=== PATIENT | female | born 1930 | race American Indian/Alaskan Native ===

== ENCOUNTER 2017-05-20 10:56 | Emergency (ER) | payer MEDICARE ==
[2017-05-20 11:01] VITALS: BMI 23.2
[2017-05-20 11:06] VITALS: TEMP 98.8; O2SAT 99
--- NOTE | 2017-05-20 11:35 | ED PDOC ---
Arrival/HPI <Chauncey Navarro - Last Filed: 05/20/17 12:57> - General Historian: Family - History of Present Illness Time/Duration: Other (may 08 - fall) Symptom Onset: Gradual Quality: Other (no pain) <Alivia Wilkes - Last Filed: 05/20/17 13:16> - General Chief Complaint: Trauma Time Seen by Provider: 05/20/17 11:10 - History of Present Illness Narrative History of Present Illness (Text): 05/20/17 12:08 86yr old diabetic female presents today brought in by family member for concerns for poorly healing wounds to the right .per patients daughter, the patient fell 2 weeks ago and scraped right foot and knee. she states she has been applying neosporin to the affected areas without appropriate healing. no fever/chills. pt denies pain. no vomiting. eating and drinking well. denies decreased sensation. no medications taken for pain at home. no other complaints. (Alivia Wilkes) Past Medical History - Provider Review Nursing Documentation Reviewed: Yes - Travel History Have you recently traveled outside [place] w/in the past 3 mons?: No - Infectious Disease Hx of Infectious Diseases: None - Reproductive Menopause: Yes - Cardiac Hx Hypertension: Yes - Neurological Hx Dementia: Yes - Endocrine/Metabolic Hx Diabetes Mellitus Type 2: Yes - Musculoskeletal/Rheumatological Hx Falls: No - Psychiatric Hx Psychophysiologic Disorder: No Hx Anxiety: No Hx Bipolar Disorder: No Hx Depression: No Hx Emotional Abuse: No Hx Hallucinations: No Hx Panic Disorder: No Hx Post Traumatic Stress Disorder: No Hx Psychosis: No Hx Physical Abuse: No Hx Schizophrenia: No Hx Sexual Abuse: No Hx Substance Use: No - Surgical History Hx Orthopedic Surgery: No (eddie) Other/Comment: 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, 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 - Anesthesia Hx Anesthesia: Yes Hx Anesthesia Reactions: No Hx Malignant Hyperthermia: No - Suicidal Assessment Feels Threatened In Home Enviroment: No <Alivia Wilkes - Last Filed: 05/20/17 13:16> Family/Social History - Physician Review Nursing Documentation Reviewed: Yes Family/Social History: Unknown Family HX Smoking Status: Former Smoker Hx Alcohol Use: No Hx Substance Use: No Hx Substance Use Treatment: No <Alivia Wilkes - Last Filed: 05/20/17 13:16> Allergies/Home Meds <Chauncey Navarro - Last Filed: 05/20/17 12:57> <Alivia Wilkes T - Last Filed: 05/20/17 13:16> Allergies/Adverse Reactions: Allergies Penicillins Allergy (Verified 07/20/15 08:23) REDNESS Home Medications: Home Meds Medication Instructions Recorded Confirmed Insulin Glargine, Recombina 10 units SC DAILY PRN 05/20/17 05/20/17 [Lantus] Review of Systems - Review of Systems Constitutional: absent: Fatigue, Fevers Respiratory: absent: SOB, Cough Cardiovascular: absent: Chest Pain, Palpitations Gastrointestinal: absent: Abdominal Pain, Nausea, Vomiting Musculoskeletal: absent: Arthralgias Skin: Other (abrasions) <Alivia Wilkes - Last Filed: 05/20/17 13:16> Physical Exam Vital Signs Reviewed: Yes Temperature: Afebrile Blood Pressure: Normal Pulse: Regular Respiratory Rate: Normal Appearance: Positive for: Well-Appearing, Non-Toxic, Comfortable Pain Distress: None Mental Status: Positive for: Alert and Oriented X 3 - Systems Exam Mouth: Present: Moist Mucous Membranes Neck: Present: Normal Range of Motion Respiratory/Chest: Present: Clear to Auscultation, Good Air Exchange. No: Respiratory Distress, Accessory Muscle Use Cardiovascular: Present: Regular Rate and Rhythm, Normal S1, S2. No: Murmurs Abdomen: No: Tenderness, Distention, Rebound, Guarding Upper Extremity: Present: Normal ROM Lower Extremity: Present: Normal ROM, Swelling (right foot; superficial abrasion noted dorsal aspect of great toe and dorsal aspect of foot; both abrasions approx dime sized. minimal swelling, no erythema; no warmth. no purulent discharge. ), Neurovascularly Intact, Capillary Refill < 2 s, Other ( right knee; + superficial abrasion noted over anterior knee; full rom of knee. no erythema; no edema. ). No: CALF TENDERNESS, Tenderness, Erythema, Deformity Skin: Present: Warm, Dry Psychiatric: Present: Alert <Alivia Wilkes - Last Filed: 05/20/17 13:16> Vital Signs Temp Pulse Resp BP Pulse Ox 05/20/17 10:57 98.8 F 73 16 125/75 99 Medical Decision Making <Chauncey Navarro - Last Filed: 05/20/17 12:57> <Alivia Wilkes - Last Filed: 05/20/17 13:16> ED Course and Treatment: 05/20/17 12:18 86yr old diabetic female with abrasions to foot and knee s/p fall 2 weeks ago. cbc: wnl cmp WNl xray right foot; no fracture. as read by radiologist pt reassessment; pt non toxic well appearing; no distress. stable vitals. pt seen and evaluated by dr. navarro. will d/c home with bactrim. advised f/u with PMD within the next 2 days. advised f/u with wound center/surgery. advised immediate return if symptoms worsen,persist or if new symptoms develop. Patient/patients daughter verbalizes understanding of discharge instructions and need for immediate followup. all aspects of this case were discussed the attending of record. impression; abrasion, foot, abrasion knee apply bacitracin/neosporin twice daily to affected areas. bactrim; 1 tablet twice daily x 7 days follow up with the primary care physician within the next 2 days. follow up with the wound center/surgeon within the next 2 days. return immediately if symptoms worsen,persist or if new symptoms develop; high fevers, increasing pain, redness, increasing swelling, purulent discharge or any other concerning symptoms develop (Alivia Wilkes) - Lab Interpretations Lab Results: 05/20/17 11:46 05/20/17 11:46 Lab Results 05/20/17 11:46: WBC 7.8 D, RBC 3.47 L, Hgb 10.6 L, Hct 32.1 L, MCV 92.5, MCH 30.5, MCHC 33.0, RDW 13.3, Plt Count 321, MPV 9.1, Gran % 71.0 H, Lymph % (Auto ) 22.6, Angelina % (Auto) 5.0, Eos % (Auto) 1.1 L, Baso % (Auto) 0.3, Gran # 5.57, Lymph # 1.8, Angelina # 0.4, Eos # 0.1, Baso # 0.02 05/20/17 11:46: Sodium 141, Potassium 3.8, Chloride 103, Carbon Dioxide 31, Anion Gap 11, BUN 20, Creatinine 1.0, Est GFR ( Amer) > 60, Est GFR (Non- Af Amer) 52, Random Glucose 113 H, Calcium 9.4, Total Bilirubin 0.9, AST 25, ALT 28, Alkaline Phosphatase 109, Total Protein 7.1, Albumin 3.5, Globulin 3.6, Albumin/Globulin Ratio 1.0 L - RAD Interpretation Radiology Orders: 05/20/17 11:15 FOOT RIGHT 3 VIEWS ROUTINE [RAD] Stat - Medication Orders Current Medication Orders: Discontinued Medications Tetanus/Reduced Diphtheria/Acell Pertussis (Boostrix Vaccine Inj) 0.5 ml IM .ONCE ONE Stop: 05/20/17 12:15 - PA / PRESCRIPTION BENEFIT SPECIALIST / Resident Statement / has examined the patient and agrees with the treatment plan. <Chauncey Navarro - Last Filed: 05/20/17 12:57> Disposition/Present on Arrival <Chauncey Navarro - Last Filed: 05/20/17 12:57> - Present on Arrival Any Indicators Present on Arrival: No History of DVT/PE: No History of Uncontrolled Diabetes: No Urinary Catheter: No History of Decub. Ulcer: No History Surgical Site Infection Following: None - Disposition Have Diagnosis and Disposition been Completed?: Yes Disposition Time: 13:13 Patient Plan: Discharge <Alivia Wilkes - Last Filed: 05/20/17 13:16> - Disposition Diagnosis: Abrasion, foot, Abrasion, knee Disposition: HOME/ ROUTINE Condition: GOOD Discharge Instructions (ExitCare): Abrasion (ED) Additional Instructions: apply bacitracin/neosporin twice daily to affected areas. bactrim; 1 tablet twice daily x 7 days follow up with the primary care physician within the next 2 days. follow up with the wound center/surgeon within the next 2 days. return immediately if symptoms worsen,persist or if new symptoms develop; high fevers, increasing pain, redness, increasing swelling, purulent discharge or any other concerning symptoms develop Prescriptions: Bacitracin OINT 1 applic TP BID #1 tube Sulfamethoxazole/Trimethoprim [Bactrim DS 800 mg-160 mg] 1 tab PO BID #14 tab Referrals: Pola Avitia MD [Primary Care Provider] - Follow up with primary Sunil Modi MD [Staff Provider] - [place] [facility] [place] - Follow up with primary Forms: [employer] ([place])
[2017-05-20] MEDS ORDERED: TDAP Vaccine 0.5 mL Syr IM ONE (12:14)
[2017-05-20 12:28] LABS: BASO # 0.02 K/mm3 (0.0-2.0); BASO % 0.3 % (0.0-3.0); EOS # 0.1 (0.0-0.7); EOS % 1.1 % (1.5-5.0); GRAN # 5.57 (1.4-6.5); HEMATOCRIT 32.1 % (36.0-48.0); LYMPH # 1.8 (1.2-3.4); LYMPH % 22.6 % (22.0-35.0); MEAN CELL VOLUME 92.5 fl (80.0-105.0); MEAN CORPUSCULAR HEMOGLOBIN 30.5 pg (25.0-35.0); MEAN PLATELET VOLUME 9.1 fl (7.0-11.0); MONO # 0.4 (0.1-0.6); RED CELL DISTRIBUTION WIDTH 13.3 % (11.5-14.5); WHITE BLOOD COUNT 7.8 10^3/ul (4.5-11.0)
--- NOTE | 2017-05-20 12:28 | RAD ---
PROCEDURE: Right Foot Radiographs. HISTORY: fall 2 weeks ago/ swelling/ wounds COMPARISON: None. FINDINGS: BONES: No acute fracture. JOINTS: Mild hammertoe deformity of 2nd through 5th digit. SOFT TISSUES: Vascular calcification OTHER FINDINGS: None. IMPRESSION: No fracture/dislocation.
[2017-05-20 12:35] LABS: ALKALINE PHOSPHATASE 109 U/L (38-126); ALT/SGPT 28 U/L (7-56); AST/SGOT 25 U/L (14-36); BILIRUBIN,TOTAL 0.9 mg/dL (0.2-1.3); BLOOD UREA NITROGEN 20 mg/dL (7-21); CALCIUM 9.4 mg/dL (8.4-10.5); CARBON DIOXIDE 31 mmol/L (21-33); CHLORIDE 103 mmol/L (98-107); GFR AFRICAN-AMERICAN > 60; GLUCOSE,RANDOM 113 mg/dL (70-110); POTASSIUM 3.8 mmol/L (3.6-5.0); SODIUM 141 mmol/L (132-148); TOTAL PROTEIN 7.1 g/dL (5.8-8.3)
[2017-05-20 13:47] VITALS: BP 135/79; PULSE 78; RESP 17
== END 2017-05-20 13:48 | disposition home or self-care (01) ==
LOC: ED 10:56
DX: S90.811A Abrasion, right foot, initial encounter (principal); S80.211A Abrasion, right knee, initial encounter; W18.30XA Fall on same level, unspecified, initial encounter; Y92.9 Unspecified place or not applicable; E11.9 Type 2 diabetes mellitus without complications; Z23 Encounter for immunization